=== PATIENT | female | born 1975 | race Two or more races ===

== ENCOUNTER 2018-06-25 11:14 | Emergency (ER) | payer BC, OTHER ==
[~2018-06-25] VITALS: Ht 167.6 cm; Wt 97.5 kg
[2018-06-25 12:10] VITALS: BP 139/87
[2018-06-25] MEDS ORDERED: IPRATROPIUM BROM 0.5 MG/2.5ML INH SOL NEB ONE (12:45)
[2018-06-25] MEDS ORDERED: SODIUM CHLORIDE 0.9% 1,000 ML IV ONE (12:45)
[2018-06-25] MEDS ORDERED: ALBUTEROL SULF 2.5 MG/0.5ML(0.5%) NEB SOLN NEB ONE (12:45)
[2018-06-25 13:00] LABS: Basophils # (auto) 0.1 uL; Basophils % (auto) 0.7 % (0.0-2.0); Eosinophils # (auto) 0.4 uL; Eosinophils % (auto) 4.2 % (0.0-7.0); Hematocrit 50.7 % (36.0-46.0); Hemoglobin 16.9 g/dL (12.2-16.2); Lymphocytes # (auto) 2.5 uL; Lymphocytes % (auto) 27.9 % (10.0-50.0); Mean Corpuscular Hemoglobin 29.8 pg (28.0-32.0); Mean Corpuscular Hgb Conc. 33.4 g/dL (32.0-36.0); Mean Corpuscular Volume 89.3 fL (80.0-100.0); Monocytes # (auto) 0.8 uL; Monocytes % (auto) 9.4 % (0.0-12.0); Neutrophils # (auto) 5.2 uL; Neutrophils % (auto) 57.8 % (37.0-80.0); Nucleated Red Blood Cells % 0.8 %; Platelet Count (auto) 328 10^3/uL (140-450); Red Blood Cells 5.68 10^6/uL (4.0-5.20); Red Cell Distribution Width 13.4 % (11.8-14.3)
[2018-06-25 13:23] LABS: Albumin 3.8 g/dL (3.4-5.0); BUN/Creatinine Ratio 21.4; Calcium 9.2 mg/dL (8.5-10.1); Potassium 3.6 mmol/L (3.5-5.1)
[2018-06-25 13:27] LABS: Bilirubin, Total 0.4 mg/dL (0.2-1.0); Total Protein 7.9 g/dL (6.4-8.2)
[2018-06-25 13:45] LABS: Urine Bacteria FEW /hpf (None Seen); Urine Blood Negative /uL (Negative); Urine Specific Gravity 1.021 (1.001-1.035); Urine WBC 1 /hpf (0 - 5)
[2018-06-25] MEDS ORDERED: methylPREDNISolone SOD SUCC 125 MG/2 ML VL IV ONE (14:15)
[2018-06-25] MEDS ORDERED: cefTRIAXone 1GM/50ML D5W 50 ML IV ONE (14:15)
== END 2018-06-25 14:46 | disposition home or self-care (01) ==
LOC: ER 11:14
DX: J20.9 Acute bronchitis, unspecified (principal); E86.0 Dehydration
CPT/HCPCS: 36415; 71046; 80053; 81001; 85025; 94640; 96361; 96365; 96375; 99284; J0696; J2930; J7030

== ENCOUNTER 2018-09-03 19:18 | Emergency (ER) | payer BC ==
[~2018-09-03] VITALS: Ht 167.6 cm; Wt 99.8 kg
[2018-09-03 19:59] LABS: Basophils # (auto) 0.1 uL; Basophils % (auto) 0.8 % (0.0-2.0); Eosinophils # (auto) 0.3 uL; Eosinophils % (auto) 3.1 % (0.0-7.0); Hemoglobin 16.3 g/dL (12.2-16.2); Lymphocytes # (auto) 3.2 uL; Mean Corpuscular Hemoglobin 28.8 pg (28.0-32.0); Mean Corpuscular Hgb Conc. 33.2 g/dL (32.0-36.0); Mean Corpuscular Volume 86.6 fL (80.0-100.0); Monocytes % (auto) 9.6 % (0.0-12.0); Neutrophils # (auto) 5.8 uL; Neutrophils % (auto) 55.5 % (37.0-80.0); Nucleated Red Blood Cells % 0.1 %; Platelet Count (auto) 307 10^3/uL (140-450); Red Blood Cells 5.66 10^6/uL (4.0-5.20); Red Cell Distribution Width 13.5 % (11.8-14.3); White Blood Cell 10.4 10^3/uL (4.4-10.8)
[2018-09-03 19:59] LABS: Urine Bacteria FEW /hpf (None Seen); Urine Blood Negative /uL (Negative); Urine Specific Gravity 1.017 (1.001-1.035); Urine WBC 2 /hpf (0 - 5)
[2018-09-03 20:19] LABS: Albumin 3.9 g/dL (3.4-5.0); Anion Gap 9 (5-15); BUN/Creatinine Ratio 20.9; Blood Urea Nitrogen 18 mg/dL (7-18); Calcium 9.5 mg/dL (8.5-10.1); Carbon Dioxide 24 mmol/L (21-32); Chloride 106 mmol/L (98-107); GFR African American 93 mL/min; GFR Non-African American 77 mL/min; Glucose 117 mg/dL (74-106); Magnesium 2.5 mg/dL (1.6-2.6); Potassium 3.7 mmol/L (3.5-5.1); Sodium 139 mmol/L (136-145)
[2018-09-03 20:24] LABS: Alanine Aminotransferase 106 U/L (13-56); Alkaline Phosphatase 82 U/L (45-117); Aspartate Aminotransferase 44 U/L (15-37); Bilirubin, Total 0.2 mg/dL (0.2-1.0); Total Protein 7.9 g/dL (6.4-8.2)
[2018-09-03 20:32] LABS: Beta HCG, Quantitative < 1 mlU/mL (1-3); Thyroid Stimulating Hormone 2.75 uIU/mL (0.358-3.74)
[2018-09-04 05:14] VITALS: BP 106/74
== END 2018-09-04 05:56 | disposition home or self-care (01) ==
LOC: ER 19:19
DX: R07.89 Other chest pain (principal)
CPT/HCPCS: 36415; 80053; 81001; 83735; 84443; 84484; 84702; 85025; 93005

== ENCOUNTER 2019-02-03 16:54 | Inpatient (IN) | payer BC ==
[~2019-02-03] VITALS: Ht 167.6 cm; Wt 102.1 kg
[2019-02-03 17:47] LABS: Basophils # (auto) 0.1 uL; Basophils % (auto) 0.5 % (0.0-2.0); Eosinophils # (auto) 0.2 uL; Eosinophils % (auto) 1.6 % (0.0-7.0); Hemoglobin 15.2 g/dL (12.2-16.2); Lymphocytes % (auto) 19.5 % (10.0-50.0); Mean Corpuscular Hemoglobin 27.6 pg (28.0-32.0); Mean Corpuscular Hgb Conc. 32.3 g/dL (32.0-36.0); Mean Corpuscular Volume 85.3 fL (80.0-100.0); Monocytes # (auto) 1.2 uL; Monocytes % (auto) 7.9 % (0.0-12.0); Neutrophils # (auto) 10.7 uL; Neutrophils % (auto) 70.5 % (37.0-80.0); Nucleated Red Blood Cells % 0.1 %; Platelet Count (auto) 308 10^3/uL (140-450); Red Blood Cells 5.51 10^6/uL (4.0-5.20); Red Cell Distribution Width 14.9 % (11.8-14.3); White Blood Cell 15.1 10^3/uL (4.4-10.8)
[2019-02-03 18:03] LABS: Alanine Aminotransferase 34 U/L (13-56); Albumin 3.4 g/dL (3.4-5.0); Anion Gap 8 (5-15); Aspartate Aminotransferase 13 U/L (15-37); BUN/Creatinine Ratio 20.8; Blood Urea Nitrogen 16 mg/dL (7-18); Calcium 8.7 mg/dL (8.5-10.1); Carbon Dioxide 26 mmol/L (21-32); Chloride 106 mmol/L (98-107); GFR African American 105 mL/min; GFR Non-African American 87 mL/min; Glucose 126 mg/dL (74-106); Potassium 3.5 mmol/L (3.5-5.1); Sodium 140 mmol/L (136-145)
[2019-02-03 18:08] LABS: Alkaline Phosphatase 89 U/L (45-117); Bilirubin, Total 0.3 mg/dL (0.2-1.0); Total Protein 7.6 g/dL (6.4-8.2)
[2019-02-03] MEDS ORDERED: methylPREDNISolone SOD SUCC 125 MG/2 ML VL IV ONE (20:00)
[2019-02-03] MEDS ORDERED: IPRATROPIUM BROM 0.5 MG/2.5ML INH SOL HHN ONE (20:00)
[2019-02-03] MEDS ORDERED: ALBUTEROL SULF 2.5 MG/0.5ML(0.5%) NEB SOLN HHN ONE (20:00)
[2019-02-03] MEDS ORDERED: IOHEXOL 350 MG/ML 100ML IJ ONE (21:35)
[2019-02-04] VITALS (7 sets, daily range): BP systolic 113–136; BP diastolic 67–80
[2019-02-04] MEDS ORDERED: ALBUTEROL SULF 2.5 MG/0.5ML(0.5%) NEB SOLN NEB ONE (00:15)
[2019-02-04] MEDS ORDERED: IPRATROPIUM BROM 0.5 MG/2.5ML INH SOL NEB ONE (00:15)
[2019-02-04] MEDS ORDERED: SODIUM CHLORIDE 0.9% 1,000 ML IV ONE (00:15)
[2019-02-04 00:33] LABS: Urine Bacteria NONE SEEN /hpf (None Seen); Urine Blood TRACE /uL (Negative); Urine Mucus FEW (None Seen); Urine WBC 6 /hpf (0 - 5)
[2019-02-04 00:35] LABS: Urine Specific Gravity > 0.150 (1.001-1.035)
[2019-02-04] MEDS ORDERED: ACETAMINOPHEN 325 MG TAB PO PRN (00:45)
[2019-02-04] MEDS ORDERED: TEMAZEPAM 15 MG CAP PO PRN (00:45)
[2019-02-04] MEDS ORDERED: ONDANSETRON HCL 4 MG/2 ML VIAL IV PRN (00:45)
[2019-02-04 01:20] LABS: Lactic Acid w/Reflex 3.8 mmol/L (0.4-2.0)
--- NOTE | 2019-02-04 01:30 | NUR ---
Admitted to room 273 [address]. 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 Awake alert and oriented. Complaining of chest tightness and cough x1 week that has gradually become worse despite taking a zpack and prednisone from urgent care. Skin clean dry and intact. Continuous dry cough.Afebrile. IV to R FA patent. Only has pain when coughing. Oriented to room and hospital policies. Call light within reach and bed low
[2019-02-04] MEDS ORDERED: LEVOFLOXACIN 500MG 100 ML IV SCH (02:00)
--- NOTE | 2019-02-04 02:00 | NUR ---
Paged hospitalist regarding a request for a cough suppressant. Patient continuously coughing for 1 week. Denies coughing up any phlegm. Awaiting return call.
[2019-02-04] MEDS ORDERED: guaiFENesin-DM 100/10mg/5ml SYR PO PRN (03:00)
[2019-02-04] MEDS: ALBUTEROL SULF 2.5 MG/0.5ML(0.5%) NEB SOLN NEB SCH ×2 (06:49→13:14)
[2019-02-04] MEDS: IPRATROPIUM BROM 0.5 MG/2.5ML INH SOL NEB SCH ×2 (06:49→13:14)
--- NOTE | 2019-02-04 07:30 | NUR ---
Opening Shift Note Assumed care of patient, awake and alert. No S/S of distress/SOB. Pt denies having any pain at this time. Bed in lowest and locked position with side rails up x2 and call light within reach. Instructed on POC and to call for assist PRN, will continue to monitor for changes Q1hr and PRN.
[2019-02-04] MEDS ORDERED: TRIAMTERENE/HCTZ 37.5/25 MG CAP/TAB PO SCH (10:00)
[2019-02-04] MEDS ORDERED: methylPREDNISolone SOD SUCC 125 MG/2 ML VL IV SCH (10:00)
[2019-02-04] MEDS ORDERED: FAMOTIDINE 20 MG TAB PO SCH (10:00)
[2019-02-04 16:17] LABS: Basophils # (auto) 0.1 uL; Basophils % (auto) 0.4 % (0.0-2.0); Eosinophils # (auto) 0 uL; Eosinophils % (auto) 0.1 % (0.0-7.0); Hematocrit 47.8 % (36.0-46.0); Hemoglobin 15.6 g/dL (12.2-16.2); Lymphocytes # (auto) 1.2 uL; Mean Corpuscular Hemoglobin 27.9 pg (28.0-32.0); Mean Corpuscular Hgb Conc. 32.7 g/dL (32.0-36.0); Mean Corpuscular Volume 85.4 fL (80.0-100.0); Monocytes # (auto) 0.6 uL; Neutrophils # (auto) 12.7 uL; Neutrophils % (auto) 87.5 % (37.0-80.0); Nucleated Red Blood Cells % 0.1 %; Platelet Count (auto) 315 10^3/uL (140-450); Red Cell Distribution Width 15.2 % (11.8-14.3); White Blood Cell 14.5 10^3/uL (4.4-10.8)
--- NOTE | 2019-02-04 17:13 | NUR ---
RECEIVED CALL FROM DR. Zelalem CUNNINGHAM. ACCORDING TO , THE PATIENT CAN BE DISCHARGED AND THE MOBILITY ARCHITECT MANAGER WILL CONTACT THE PATIENT AFTER SHE IS DISCHARGED TO EVALUATE THE PATIENT FOR HOME HEALTH. ACCORDING TO DR. CUNNINGHAM, HE HAS CALLED THE MOBILITY ARCHITECT MANAGER TO BEGIN THE PROCESS OF THE HOME HEALTH EVALUATION.
--- NOTE | 2019-02-04 17:13 | NUR ---
DR. CUNNINGHAM NOTIFIED THAT THE PATIENT ROOM AIR SATURATION WAS 93%. AWARE. NO NEW ORDERS RECEIVED AT THIS TIME.
--- NOTE | 2019-02-04 17:15 | NUR ---
CLARIFIED DISCHARGE WITH DR. Zelalem CUNNINGHAM. PER , DO NOT HOLD DISCHARGE DUE TO THE SOCIAL SERVICE CONSULT. PER , THE CONSULT IS IN PROCESS WITH THE SOCIAL WORKERS WITH [facility].
--- NOTE | 2019-02-04 17:15 | NUR ---
PER DR. Zelalem CUNNINGHAM, PRESCRIBED MEDICATIONS SENT ELECTRONICALLY TO PATIENTS PREFERRED PHARMACY.
[2019-02-04] MEDS ORDERED: PRE5T PO (17:18)
[2019-02-04] MEDS ORDERED: DEXT1SYP9 PO (17:18)
[2019-02-04] MEDS ORDERED: IPRIH IN (17:18)
[2019-02-04] MEDS ORDERED: LEVAAER IN (17:18)
[2019-02-04] MEDS ORDERED: LEVO500T21 PO (17:18)
[2019-02-04 17:22] LABS: BUN/Creatinine Ratio 14.6; Calcium 9.5 mg/dL (8.5-10.1); Potassium 3.7 mmol/L (3.5-5.1)
--- NOTE | 2019-02-04 17:26 | NUR ---
Discharge planning per consult, patient has orders to dc with a home health safety eval. Referral sent to [facility] and [facility] assistant banquet manager Sisi. Placed a follow up call to [facility], spoke with [employer] Intelligence Officer Chief at [facility] who advised they will most likely accept this patient and that he will let the coordinator know to look out for the referral. Addendum: 02/04/19 at 173 by [place] SANDOVAL Nurse Carol advised patient is okay to discharge. Addendum: 02/04/19 at 1748 by [place] SANDOVAL Received a follow up call from Tamie at [facility] and was advised they did received the consult and start of care will be on Thursday.
--- NOTE | 2019-02-04 18:30 | NUR ---
Discharge instructions given as ordered. Encourage to follow up with PMD as instructed. All questions and concerns addressed. Patient verbalized understanding. Medication reconciliation form completed and copy given to patient. No Home medications held in Pharmacy. No needed vaccines. IV removed with catheter intact, pressure dressing applied.
--- NOTE | 2019-02-04 18:44 | NUR ---
Patient taken to vehicle with all personal belongings, accompanied by staff. No S/S of distress or SOB noted at time of departure.
[2019-02-04] MEDS ORDERED: ATORVASTATIN 20 MG TAB PO SCH (22:00)
== END 2019-02-04 18:44 | disposition home health service (06) | DRG 202 ==
LOC: ER 16:54 → OVERFLOW 16:55 → WEST WING 02-04 01:25
PROVIDERS: ADMIT Nurse Practitioner; ATTEND Internal Medicine
DX: J45.901 Unspecified asthma with (acute) exacerbation (principal); J18.9 Pneumonia, unspecified organism; J98.11 Atelectasis; J20.9 Acute bronchitis, unspecified; E66.9 Obesity, unspecified; Z68.36 Body mass index [BMI] 36.0-36.9, adult; E78.5 Hyperlipidemia, unspecified; I10 Essential (primary) hypertension; K76.0 Fatty (change of) liver, not elsewhere classified; J01.00 Acute maxillary sinusitis, unspecified; Z82.49 Family history of ischemic heart disease and other diseases of the circulatory system; Z98.51 Tubal ligation status
CPT/HCPCS: 36415; 36600; 71046; 71260; 80048; 80053; 81001; 82805; 83605; 84484; 85025; 87804; 93005; 94640; 94644; 94761; 96374; G0378; J1956